=== PATIENT | female | born 1960 | race Caucasian/White ===

== ENCOUNTER 2025-07-09 19:44 | Emergency (ER) | payer MEDICARE, BC ==
[~2025-07-09] VITALS: Ht 157.5 cm; Wt 68.2 kg
[2025-07-09] MEDS: normal saline 1000ML IV soln IVB ONE (20:54)
[2025-07-09] MEDS: ondansetron/PF 4mg/2ml inj IV ONE (20:54)
--- NOTE | 2025-07-09 21:04 | RADIOLOGY REPORT ---
EXAM: CT CT HEAD INDICATION: Headache TECHNIQUE: CT of the head without intravenous contrast. Radiation Dose : 1. Head: CT Dose: CTDI volume is 58 mGy. Dose-length product is 1060 mGy*cm The dose indicators for CT are the volume Computed Tomography (CT) Dose Index (CTDIvol) and the Dose Length Product (DLP), and are measured in units of mGy and mGy-cm, respectively. These indicators are not patient dose, but values generated from the CT scanner acquisition factors. The report includes radiation exposure data for exposures received during this examination. COMPARISON: None FINDINGS: Brain: No acute hemorrhage, mass effect, or cerebral edema. CSF Spaces: Size and morphology within normal limits. Bones/Soft Tissues: No acute findings. Orbits/Sinuses/Mastoids: No acute findings. Bilateral lens replacements. IMPRESSION: 1. No acute intracranial abnormality. Radiation optimization: All CT scans at this facility use at least one of these dose optimization techniques: automated exposure control mA and/or kV adjustment per patient size (includes targeted exams where dose is matched to clinical indication) or iterative reconstruction.
[2025-07-09] MEDS ORDERED: ketorolac trometh 15mg/ml vial 15 MG/ML ML IV ONE (21:20)
[2025-07-09] MEDS: ketorolac trometh 15mg/ml vial 15 MG/ML ML IV ONE (21:30)
[2025-07-09 21:41] LABS: MEAN PLATELET VOLUME 9.2 FL (7.4-10.4); RED CELL DISTRIBUTION WIDTH 13.2 % (11.5-14.5)
[2025-07-09 21:42] VITALS: TEMP 97.6
[2025-07-09 21:44] LABS: CREATININE 0.91 MG/DL (0.40-0.90); TOTAL CARBON DIOXIDE 22.8 MMOL/L (24-32); eCRCL 51 ML/MIN; eGFR 63 ML/MIN
--- NOTE | 2025-07-09 21:55 | Physician Documentation ---
History of Present Illness ~ Chief Complaint: Head Pain Stated Complaint: MIGRAINE Time Seen by : 20:36 OK to notify your PCP?: Yes Source: patient Mode of Arrival: POV Exam Limitations: no limitations HPI Mrs. Bar is a 64 y/o female who presents with c/o a Headache. She states that she has had 10 migraine SHERMAN's in her life and states that she typically can tell when the Migraine is coming on as she has visual changes. She was out with friends tonight having wine and she had just had a slice of pizza when she developed ABD pain. She got up to leave and as she was walking to her car, she developed a severe SHERMAN. She drove straight here. No neck pain or focal weakness. No acute visual changes. No recent head trauma. Medication Reconciliation Allergies: Coded Allergies: hydromorphone (Verified Allergy, Severe, RASH, 07/09/25) Review of Systems All Other Systems at this time: Reviewed and Negative Physical Exam Vital Signs: RN Vital Signs have been reviewed: Yes, Temperature: 97.6, Source: Temporal, Heart Rate: 84, Respiratory Rate: 20, BP: 142/76, Pulse Oximetry: 94, Weight: 68.200 Oxygen Flow Rate: 0 Physical Exam GEN: Alert and oriented and in NAD. HEENT: NC/AT. PERRLA. No scleral icterus. MMM. No oral lesions. NECK: Supple. No JVD. CHEST: RRR. No M/G/T. LUNGS: CTA B. No W/R/R. ABD: Soft. NTND. + BS. No rebounding or guarding. BACK: No CVA TTP. EXT: No c/c/e. NEURO: Alert and oriented x 4. Cooperative. Sensorimotor intact x 4 extremities. Progress Results/Orders Results/Orders Orders - OMAR MARTINEZ MD Ct Head (07/09/25 20:36) Prochlorperazine Inj (Compazine Inj) (07/09/25 22:05) Completed Orders - OMAR MARTINEZ MD Ct Head (07/09/25 20:36) Ondansetron Inj. (Zofran 4mg/2ml Vial) (07/09/25 20:45) Normal Saline 1000ml (0.9% Sodium Chlori (07/09/25 20:50) Cbc/Diff (07/09/25 20:48) BMP (07/09/25 20:48) Ketorolac Trometh 15mg/Ml Vial (Toradol (07/09/25 21:20) Ketorolac Trometh 15mg/Ml Vial (Toradol (07/09/25 21:20) Medications Received in ER Medications (Trade) Dose Ordered Sig/Susanna Route PRN Reason Start Time Stop Time Status Last Admin Dose Admin (Zofran 4mg/2ml vial) 4 mg ONCE ONCE IV 07/09/25 20:45 07/09/25 20:46 DC 07/09/25 20:54 4 MG (0.9% sodium chloride (NS) 1000ml IV soln) 1,000 ml ONCE ONCE IVB 07/09/25 20:50 07/09/25 20:51 DC 07/09/25 20:54 1,000 ML (Toradol injection) 15 mg ONCE ONCE IV 07/09/25 21:20 07/09/25 21:24 DC 07/09/25 21:30 15 MG Vital Signs 07/09/25 07/09/25 07/09/25 07/09/25 20:05 20:58 21:30 21:42 Temp 97.6 97.6 Pulse 87 84 Resp 18 18 18 20 B/P (MAP) 156/80 142/76 (98) Pulse Ox 99 94 O2 Flow Rate 0 0 Laboratory Tests Test 07/09/25 20:44 White Blood Count 7.2 Red Blood Count 4.31 Hemoglobin 14.3 Hematocrit 41.9 Mean Corpuscular Volume 97.1 Mean Corpuscular Hemoglobin 33.3 H Mean Corpuscular Hemoglobin Concent 34.3 Red Cell Distribution Width 13.2 Platelet Count 284 Mean Platelet Volume 9.2 Neutrophils (%) (Auto) 40.0 L Lymphocytes (%) (Auto) 48.3 Monocytes (%) (Auto) 7.9 Eosinophils (%) (Auto) 2.8 Basophils (%) (Auto) 1.0 Neutrophils # (Auto) 2.9 Lymphocytes # (Auto) 3.5 Monocytes # (Auto) 0.6 Eosinophils # (Auto) 0.2 Basophils # (Auto) 0.1 CBC Comment Sodium Level 139 Potassium Level 3.2 L Chloride Level 101 Carbon Dioxide Level 22.8 L Anion Gap 15 Blood Urea Nitrogen 13 Creatinine 0.91 H Estimated GFR/1.73 m2 63 BUN/Creatinine Ratio 14.3 Glucose Level 144 H Calcium Level 9.4 Albumin 4.1 Chemistry Comments Medical Decision Making Additional information obtaine: N/A Findings While here in the ED, she remained hemodynamically normal with ABC's intact and in NAD. She is afebrile and nontoxic. Neuro exam nonfocal. No meningismus on exam. She was sent for a STAT head CT. CT without acute intracranial pathology. IV was placed and she was started on antiemetics along with IV fluid therapy an d Ketorolac. She was reassessed and states that she feels significantly better. I have low clinical suspicion for an acute aSAH. Per Vamshi et al, she has presented within a known 6-hours of time of onset with a negative head CT and can be ruled out for an acute SAH. Her s/s appear most consistent with an acute migraine. Ambulated here in the ED without gait abnormalities. She is safe for d/c home. She was given follow-up and return instructions. She voiced understanding and agreement with d/c instructions. Differential Dx:Considerations: Include: SHERMAN-Cluster, SHERMAN-Migraine, SHERMAN- Hypertensive, Close head injuyr, CVA, Hemorrhage-Intracerebral, Hemorrhage- Subarachnoid, Hemorrhage-Subdural, Mass lesion, Meningitis, Pseudotumor cerebri, Sinusitis, Temporal arteritis, Trigeminal neuralgia Departure Disposition: 01 HOME / SELF CARE / HOMELESS Impression: Primary Impression: Headache Condition: Improved Discharge Instructions: Headache Referrals: NO PRIMARY CARE PROVIDER (PCP) Comments Follow-up with your family physician within the next 24-48 hours. Return to the Emergency Department if there are any additional concerns. Education Educated: Patient Educated regarding: diagnosis, treatment ACF Form Admit Criteria Met or Not Met: NO Signature Scribe Signature: N/A Attestation: N/A OMAR MARTINEZ MD Jul 09, 2025 21:55
[2025-07-09 22:46] VITALS: BP 102/63; PULSE 79; RESP 16; O2SAT 96
== END 2025-07-09 22:47 | disposition home or self-care (01) ==
LOC: ER 19:44
DX: G43.909 Migraine, unspecified, not intractable, without status migrainosus (principal); Z88.5 Allergy status to narcotic agent
CPT/HCPCS: 36415; 70450; 80048; 85025; 96361; 96372; 96374; 96375; 99285; J0780; J1885; J2405; J7030